=== PATIENT | male | born 1960 | race Caucasian/White ===

== ENCOUNTER → 2018-01-27 | Outpatient (REF) ==
[~2018-01-27] MED LIST: PRINIVIL40 MG PO; TOPROL XL 25MG25 MG PO; ZESTRIL40 MG; ZOCOR 10MG10 MG PO
== END ==
LOC: ZLAB.WCH 15:50
DX: Z12.5 Encounter for screening for malignant neoplasm of prostate (principal)
CPT/HCPCS: G0103